=== PATIENT | male | born 1985 | race Caucasian/White ===

== ENCOUNTER 2016-08-02 08:44 | Inpatient (IN) | payer MEDICAID, OTHER ==
[~2016-08-02 08:44] MED LIST: Gabapentin 300 MG Cap PO ONE; cefOXitin 2 GM Vial ONE
[2016-08-02] MEDS ORDERED: Ketamine 500 MG/5 ML MDV IV SCH (09:00)
[2016-08-02] MEDS ORDERED: fentaNYL 250 MCG/5 ML SDV ONE ×2 (09:03→11:34)
[2016-08-02] MEDS ORDERED: Succinylcholine/Normal Saline 200 MG/10 ML Syringe ONE (09:05)
[2016-08-02] MEDS ORDERED: Propofol 200 MG/20 ML SDV ONE (09:05)
[2016-08-02] MEDS ORDERED: Lactated Ringers 1,000 ML ONE (09:05)
[2016-08-02] MEDS ORDERED: Dexamethasone 4 MG/ML SDV ONE (09:05)
[2016-08-02] MEDS ORDERED: Rocuronium 50 MG/5 ML Vial ONE (09:05)
[2016-08-02] MEDS ORDERED: Neostigmine Methylsulfate 1 MG/ML 5 ML Syringe ONE (09:05)
[2016-08-02] MEDS ORDERED: Ondansetron 4 MG/2 ML SDV ONE (09:05)
[2016-08-02] MEDS ORDERED: Scopolamine 1.5 MG Transdermal Patch TRDERM SCH (09:15)
[2016-08-02] MEDS ORDERED: Scopolamine 1.5 MG Transdermal Patch TRDERM PRN (09:30)
[2016-08-02] MEDS ORDERED: Acetaminophen 500 MG Tab PO ONE (09:30)
[2016-08-02] MEDS ORDERED: Celecoxib 200 MG Cap PO ONE (09:30)
[2016-08-02] MEDS ORDERED: Dextrose 5%-Lactated Ringers 1,000 ML IV SCH (10:00)
[2016-08-02] MEDS ORDERED: cefOXitin 2 GM in Sodium Chloride 0.9% 50 ML IV ONE (10:15)
[2016-08-02] MEDS ORDERED: Ropivacaine 60 ML, Dexamethasone 8 MG, EPINEPHrine 0.4 MG, Sodium Chloride 0.9% 17.6 ML NERVRT SCH ×4 (10:30)
[2016-08-02] MEDS ORDERED: Lidocaine 2% 100 MG/5 ML Syringe IVPUSH ONE (10:30)
[2016-08-02] MEDS ORDERED: hydrOXYzine HCl 50 MG/ML SDV IM ONE (12:47)
[2016-08-02] MEDS ORDERED: HYDROmorphone 1 MG/ML Syringe IM ONE (13:28)
[2016-08-02] MEDS: Lidocaine 0.4%/D5W 2 GM/500 ML BAG IV SCH ×2 (14:30→14:56)
[2016-08-02] MEDS ORDERED: Metoclopramide 10 MG/2 ML SDV IV PRN (15:08)
[2016-08-02] MEDS ORDERED: diphenhydrAMINE 50 MG/ML SDV IV PRN (15:09)
[2016-08-02] MEDS: Acetaminophen Soln 650 MG/20.3 ML UD Cup PO SCH ×2 (15:48→21:13)
[2016-08-02] MEDS ORDERED: Pantoprazole 40 MG Vial IVPUSH SCH (16:00)
[2016-08-02] MEDS ORDERED: hydrOXYzine HCl 50 MG/ML SDV IM PRN (16:00)
[2016-08-02] MEDS ORDERED: SCOPOLAMINE PATCH ASK TOP SCH (16:00)
[2016-08-02] MEDS ORDERED: Insulin Aspart 100 Units/ML 3 ML Pen SUBCUT PRN (16:00)
[2016-08-02] MEDS ORDERED: Ondansetron 4 MG/2 ML SDV IVPUSH PRN (16:00)
[2016-08-02] MEDS ORDERED: Labetalol 20 MG/4 ML Syringe IVPUSH PRN (16:00)
[2016-08-02] MEDS ORDERED: SCOPOLAMINE PATCH CHECK TOP SCH (16:00)
[2016-08-02] MEDS: MVI, Adult with Vitamin K 10 ML, Thiamine 200 MG, Chromium/Copper/Mang/Selen/Zn 1 ML in... IV SCH ×4 (16:30)
[2016-08-02] MEDS: cefOXitin 2 GM in Sodium Chloride 0.9% 50 ML IV SCH ×2 (17:27→22:06)
[2016-08-02] MEDS: Heparin Sodium 5,000 Units/ML Vial SUBCUT SCH (17:27)
[2016-08-02] MEDS: Gabapentin 250 MG/5 ML Solution ML 470 ML Bottle PO SCH (21:13)
[2016-08-02] MEDS: Dextrose 5%-Lactated Ringers 1,000 ML IV SCH (23:15)
[2016-08-03] MEDS: Heparin Sodium 5,000 Units/ML Vial SUBCUT SCH ×3 (02:55→18:10)
[2016-08-03] MEDS: Acetaminophen Soln 650 MG/20.3 ML UD Cup PO SCH ×4 (03:00→21:56)
[2016-08-03] MEDS: Lidocaine 0.4%/D5W 2 GM/500 ML BAG IV SCH (04:05)
[2016-08-03] MEDS ORDERED: Iohexol 647 MG/ML 50 ML SDV PO STA (04:07)
[2016-08-03] MEDS: cefOXitin 2 GM in Sodium Chloride 0.9% 50 ML IV SCH (04:10)
[2016-08-03] MEDS: Dextrose 5%-Lactated Ringers 1,000 ML IV SCH (05:56)
[2016-08-03] MEDS ORDERED: Dextrose 5%-Lactated Ringers 1,000 ML IV SCH ×2 (07:23→07:45)
[2016-08-03] MEDS: Celecoxib 200 MG Cap PO SCH (08:22)
[2016-08-03] MEDS: Gabapentin 250 MG/5 ML Solution ML 470 ML Bottle PO SCH ×3 (08:24→20:42)
--- NOTE | 2016-08-03 08:31 | CR ---
Limited upper GI. Findings: Contrast within the lower esophagus. Surgical drains. No dilated loops of small bowel.
--- NOTE | 2016-08-03 09:45 | PN ---
DATE OF SERVICE: 08/03/2016 SUBJECTIVE: Doron is postop day #1. His pain has been controlled. He had oral intake at 12:10. He has been up ambulating and vital signs have been stable. REVIEW OF SYSTEMS: Remainder of review of systems negative for any pertinent positives and negatives. OBJECTIVE: GENERAL: Doron Bueno is a 31-year-old male. He is alert and orientated. SKIN: Warm and dry. Color flushed. VITAL SIGNS: TPR 97.3, 62, 16, blood pressure 132/79. HEENT: Negative. NECK: Supple. HEART: Regular rate and rhythm. LUNGS: Clear. ABDOMEN: Dressings dry and intact. Abdominal binder is on. JOYCE drain put out a light pink serous drainage of 62 mL in the past 24 hours. EXTREMITIES: SCDs are on. There is no peripheral edema. ASSESSMENT: Laparoscopic Freddy-en-Y gastric bypass surgery, liver biopsy for morbid obesity and hepatomegaly. PLAN: 1. Step-2 gastric bypass diet without cereal. 2. Decrease IV to 100 mL per hour. 3. Shower b.i.d. with soap. 4. Good pulmonary toilet encouraged. 5. We will evaluate p.r.n. or in a.m. 6. Consult to Case Management. 7. Plan discharge on Monday and to confirm that [employer] gr meals on wheels driver can come and pick him up. Kinjal Naylor PA-C /[id number]
[2016-08-03] MEDS ORDERED: Pantoprazole 40 MG Tab.CR PO SCH (16:30)
[2016-08-03] MEDS: MVI, Adult with Vitamin K 10 ML, Thiamine 200 MG, Chromium/Copper/Mang/Selen/Zn 1 ML in... IV SCH ×4 (16:50)
[2016-08-04] MEDS: Acetaminophen Soln 650 MG/20.3 ML UD Cup PO SCH ×2 (03:05→09:18)
[2016-08-04] MEDS: Heparin Sodium 5,000 Units/ML Vial SUBCUT SCH ×2 (03:05→09:17)
[2016-08-04] MEDS: Celecoxib 200 MG Cap PO SCH (07:21)
[2016-08-04] MEDS ORDERED: Cyanocobalamin (Vitamin B12) 1,000 MCG/ML SDV IM ONE (09:00)
[2016-08-04] MEDS ORDERED: Magnesium Hydroxide 400 MG/5 ML Susp 30 ML Cup PO ONE (09:00)
[2016-08-04] MEDS: Gabapentin 250 MG/5 ML Solution ML 470 ML Bottle PO SCH (09:17)
--- NOTE | 2016-08-04 11:25 | PN ---
DATE OF SERVICE: 08/04/2016 The patient has been afebrile with stable vital signs. He has constipation and some abdominal bloating. We will give him some bowel stimulation today; however, his blood sugars have all been adequate. We will discontinue the Accu-Cheks and we are tentatively planning for discharge home tomorrow. Sam Kearney MD /[id number]
[2016-08-04 13:40] VITALS: BP 153/75
[2016-08-04] MEDS ORDERED: Magnesium Hydroxide 400 MG/5 ML Susp 30 ML Cup PO PRN (18:00)
--- NOTE | 2016-08-05 10:17 | DISCH ---
FINAL DIAGNOSES: 1. Morbid obesity. 2. Prediabetes. 3. History of myopia and an open angle pre glaucoma. 4. Hyperlipidemia. 5. History obstructive sleep apnea. 6. Hepatomegaly. Grossly fatty infiltrated liver. Procedure was done on 08/02/2016; laparoscopic Freddy-en-Y gastric bypass with long limb gastroenterostomy and liver biopsy. HOSPITAL COURSE: This is a 31-year-old male with longstanding morbid obesity and increasingly significant comorbidities. After preoperative evaluation and discussion, he wished to proceed with a gastric bypass procedure. This was done laparoscopically on the date of admission and he also had a liver biopsy. Postoperatively, the patient had no significant problems. He is tolerating a step-2, i.e., full liquid type diet without difficulty. The blood sugars were checked perioperatively and these are all less than 150 and he is fully ambulatory. The plan will be to discharge home. He will be following up Kinjal Naylor at the [facility] in [place] on August 16, 2016. DISCHARGE MEDICATIONS: Will include atorvastatin 10 mg daily which were instructed for two weeks, polyethylene glycol p.r.n. We may instruct to check the Accu-Cheks twice a day for the next week, but if they are consistently less than 150 over the next three days, we can stop after that. Otherwise, he will be on Tylenol 650 mg q.i.d. scheduled x5 days and q.i.d. p.r.n. and Celebrex 200 mg p.o. daily x14 days. His vitamins and other supplements will be started after the first postoperative visit.
--- NOTE | 2016-08-12 15:08 | OR ---
DATE OF PROCEDURE: 08/02/2016 PREOPERATIVE DIAGNOSIS: Morbid obesity. POSTOPERATIVE DIAGNOSES: 1. Morbid obesity. 2. Marked hepatomegaly. PROCEDURES: 1. Laparoscopic Freddy-en-Y gastric bypass with long limb gastroenterostomy (56908). 2. Manuel-Cut needle liver biopsy (12300). ANESTHESIA: General. RECEPTION INTERVIEWER: Kinjal Naylor PA-C. INDICATION FOR PROCEDURE: This is a 31-year-old male with longstanding morbid obesity evaluated with increasing comorbidities. After preoperative evaluation and discussion, he wished to proceed with a gastric bypass procedure. Potential risks of the procedure including bleeding, infection, leaks from various GI tract closures, problems with bowel obstruction over time as well as possibility of cardiopulmonary, septic, or hemorrhagic complications and were discussed, and the patient wishes to proceed. DETAILS OF PROCEDURE: The patient was taken to the room and placed in the supine position. After general endotracheal anesthesia was induced, converted to a lithotomy position and a bilateral transversus abdominis plane blocks in subcostal location were placed under ultrasound guidance on each side with each side receiving 40 mL of saline, ropivacaine, dexamethasone, and epinephrine with injections. Following this the abdomen was prepped and draped. The 15 cm inferior, 5 cm left of xiphoid process, transverse incision was made and the peritoneal cavity was entered under direct vision with an Optiview trocar and inflated to 15 mmHg pressure of CO2. Laparoscope was reinserted. No underlying trocar insertion site injuries were seen. Following this, 5 additional trocars were placed across the upper mid abdomen and general exploration was undertaken. The patient was noted to have marked hepatomegaly with liver volume being roughly 2 to 3 times normal and the liver grossly fatty infiltrated. Manuel-Cut needle biopsies were obtained from the left lobe of the liver. Minimal bleeding from the biopsy sites was controlled with electrocautery. The omentum was then divided in the midline up to the level of the transverse colon. This allowed identification of small bowel ligament of Treitz. Small bowel was then traced out 200 cm distal. To that point, it was divided transversely with a RABIA stapler. It was then traced out initial 200 cm where the agri-bo-iccd enteroenterostomy was accomplished with internal firing of the Endo-RABIA 60 mm stapler. The common opening was then closed transversely with the same stapler and angles anastomosed, and mesenteric defect approximated with some 0-Ethibond stitch along with fibrin sealant, divided Freddy limb was then from the mesentery for a few centimeters, which allowed an antecolic position of the Freddy limb up to the level of esophagogastric junction without tension. The liver was then retracted anteriorly. The patient was noted to have no significant hiatal hernia. The gastrointestinal catheter was inflated with 15 mL of air and pulled up snugly against the EG junction. Gastric wall over the apex balloon was then marked with electrocautery, and balloon catheter deflated and withdrawn. The lesser omental tissue adjacent to gastric cardia was then incised allowing dissection behind the stomach at that level. Pouch formation was initiated with a transverse firing of the RABIA stapler at the level of the cauterized marked at the gastric cardia. The pouch was then completed with 2 additional firings of the RABIA stapler up to and through the angle of His. Upon completion of the pouch, both staple lines were noted to be intact. The anvil of a 21 mm EEA stapler was attached to a Strafford sump type tube. The latter was brought down through the mouth and taken out through a small opening. The gastric pouch, allowing the anvil likewise to be placed into the gastric pouch. The divided Freddy limb was then opened and the body of the EEA stapler passed several centimeters in the lumen and small bowel brought up through the anvil and united with it, thus creating the gastrojejunostomy. Upon removal of the stapler, double donuts of mucosa were noted within. Small bowel was closed off with a vascular staple line. Gastrojejunostomy was then reinforced with some 3-0 Vicryl seromuscular stitch along with fibrin sealant. Leak test was accomplished with injection of 120 mL of air in the gastric pouch was submerged with cefoxitin-containing saline solution, a single Monty-Reeder drain was then placed through the left subcostal trocar site and placed up against the gastrojejunostomy and from there up into the area overlying the splenic fossa. The trocars were then removed and the cavity deflated. Incisions were closed with some 4-0 Vicryl skin stitch. Drains were affixed with some 4-0 Vicryl stitch as well. The patient was taken to the recovery room in satisfactory condition. Physician financial administrative assistant, Kinjal Naylor, played an essential role in assisting in this case, helping to position the patient, retract structures as needed, as well as suturing and cutting sutures as were indicated. Her presence improved the patient's safety and decreased the operative time. Sam Kearney MD /[id number]
== END 2016-08-04 13:18 | disposition home or self-care (01) | DRG 621 ==
LOC: JP.MS 08:44 → JP.SDS 08:44 → EDSTATUS 10:00 → JP.2SS 14:00
PROVIDERS: ADMIT Surgery; ATTEND Surgery
PROC: 0FB24ZX Excision of Left Lobe Liver, Percutaneous Endoscopic Approach, Diagnostic (ICD-10-PCS; principal; 2016-08-02)
PROC: 0D164ZA Bypass Stomach to Jejunum, Percutaneous Endoscopic Approach (ICD-10-PCS; principal; 2016-08-02)
DX: E66.01 Morbid (severe) obesity due to excess calories (principal); Z68.43 Body mass index [BMI] 50.0-59.9, adult; R16.0 Hepatomegaly, not elsewhere classified; K59.00 Constipation, unspecified; E78.5 Hyperlipidemia, unspecified; G47.00 Insomnia, unspecified; G47.33 Obstructive sleep apnea (adult) (pediatric); G43.909 Migraine, unspecified, not intractable, without status migrainosus
CPT/HCPCS: 36415; 74240; 74240-26; 80053; 82962; 83036; 86850; 86900; 86901; 88307; 88313; A9270-GY; C9113; J0171; J0694; J1100; J1170; J1644; J2001; J2405; J2704; J2795; J3010; J3410; J3411; J3420; J7030; J7040; J7042; J7050; J7120; Q9967

== ENCOUNTER 2016-08-29 14:20 | Inpatient (IN) | payer MEDICAID ==
[2016-08-29] MEDS ORDERED: Magnesium Hydroxide 400 MG/5 ML Susp 30 ML Cup PO PRN (14:45)
[2016-08-29] MEDS ORDERED: Docusate Sodium 100 MG Cap PO PRN (14:45)
[2016-08-29] MEDS ORDERED: Acetaminophen 650 MG Supp RECTAL PRN (14:46)
[2016-08-29] MEDS ORDERED: Acetaminophen 325 MG Tab PO PRN (14:46)
[2016-08-29] MEDS ORDERED: Ondansetron 4 MG Tab.DIS PO PRN (14:52)
[2016-08-29] MEDS ORDERED: Ondansetron 4 MG Tab.DIS PO SCH (16:00)
[2016-08-29] MEDS ORDERED: MVI, Adult with Vitamin K 10 ML, Magnesium Sulfate 2 GM, Folic Acid 1 MG, Thiamine 100 ... IV ONE ×5 (16:00)
[2016-08-29] MEDS: Acetaminophen 325 MG Tab PO PRN (16:10)
[2016-08-29] MEDS: Pantoprazole 40 MG Vial IV SCH (16:16)
--- NOTE | 2016-08-29 16:53 | HP ---
HISTORY OF PRESENT ILLNESS: Doron presented to the clinic today for his one-month followup following a Freddy-en-Y gastric bypass surgery. He was treated for gout at his last clinic visit on 08/15/2016. His gout was in his right foot and has gone now to his left foot. He has been unable to walk at all. He has been in bed most of the time. He states that if he is sitting still his pain is a 2 to 3/10. If he gets up and walks, it is an 8/10. On 08/15/2016, his uric acid was 16.3, sedimentation rate was 89, and white count was 12.6. At that time, he was started on allopurinol 200 mg twice a day, Indocin 50 mg 3 times a day for 5 days, and omeprazole 20 mg p.o. twice a day for 30 days. He said for about five days when he was on the Indocin it did help but then he said it actually got worse when it went into his other foot. He has been unable to walk or put any pressure on his feet at all. He has been getting around with on a wheeled computer chair. PAST MEDICAL HISTORY: Includes vitamin D deficiency, arthritis, back pain, fatigue, dyslipidemia, cluster headaches, hypertension, and morbid obesity. PAST SURGICAL HISTORY: Includes Freddy-en-Y gastric bypass surgery 08/02/2016, consult weight 363, height 69.9 inches, and his last weight in the clinic was 08/15/2016 at 3:28 a.m. He is unable to stand to get a weight today. ALLERGIES: HE HAS NO KNOWN MEDICAL ALLERGIES. SOCIAL HISTORY: Lives with his dad who is disabled and does not drive. Unemployment nonapplicable. Children nonapplicable. Single. He does not smoke, drink alcohol, carbonation or caffeine. Protein intake was one protein shake per day. He has tried canned chicken but he threw it up. Fluid is 32 ounces of water a day. Exercise none. FAMILY HISTORY: Obesity in mother, father, paternal grandmother, and maternal grandfather. Diabetes in mother, paternal and maternal grandmother and father. Cardiovascular disease in both parents, paternal and maternal grandparents. Cancer in maternal grandmother and maternal grandfather. Hypertension in both parents and both paternal and maternal grandparents. CURRENT MEDICATIONS: Include Lipitor 10 mg p.o. daily, multivitamin chewable 1-2 times a day, allopurinol 200 mg twice a day, MiraLAX 17 g once a day, and Tylenol 500 mg two every 6 hours p.r.n. pain. REVIEW OF SYSTEMS: GENERAL: He has had weight loss, the amount unknown. No fever, chills, night sweats, or fatigue. HEENT: Negative for headache, ear pain, loss of hearing, blurred or double vision. RESPIRATORY: Shortness of breath with exertion, no cough. CARDIOVASCULAR: No chest pain, fast or irregular heart beat. GI: No dysphagia or abdominal pain. Occasional nausea with vomiting x1. He has had one episode of nausea with vomiting. Denies constipation or diarrhea. : Negative. ENDOCRINE: Negative. MUSCULOSKELETAL: Positive for bilateral feet pain and has chronic back pain. NEUROLOGIC: No dizziness, loss of coordination. PSYCHIATRIC: Negative for anxiety, depression. No significant anxiety. Denies insomnia but does report to starting onto get depressed with some inability to walk. PHYSICAL EXAMINATION: GENERAL: Doron Bueno is a 31-year-old male. He is alert and orientated. VITAL SIGNS: 151/105, 200/105, 164/80, and 175/124 blood pressure, temperature 99, pulse 106, respirations 16, and O2 sats 98%. HEENT: Negative. NECK: Supple. HEART: Regular rate and rhythm LUNGS: Clear. ABDOMEN: Soft, nontender. Incisions are well healed. EXTREMITIES: Revealed trace peripheral edema. Feet are slightly edematous bilaterally. There is no red or warm joint noted. He does have tenderness in the instep of each foot that extends into the toes. SKIN: Without rash. PSYCHIATRIC: Mood and affect are appropriate. ASSESSMENT: 1. Bilateral foot pain. 2. Gout. 3. Status post Freddy-en-Y gastric bypass surgery. 4. Unspecified surgical malabsorption. 5. B12 deficiency. 6. Vitamin D deficiency. 7. Arthritis. 8. Back pain. 9. Chronic fatigue. 10.Cluster headaches. 11.Impaired glucose function. 12.Dyslipidemia. PLAN: Admit to the hospital for inpatient for bilateral foot pain and gout. Diet: Step 2 gastric bypass diet with cream of wheat, cottage cheese, string cheese, can Tuna or chicken. Activity as tolerated. Vital signs q.4 hours. IV hydration. D5 LR at 150 mL/h, check CBC, CMP, CRP, sedimentation rate, uric acid, shower daily, physical therapy to evaluate and treat for deconditioning and bilateral gout, daily weight checks. Podiatry consult and x- ray of both feet were done at clinic. Protonix 40 mg IV b.i.d., Lipitor 10 mg once daily. Hold MiraLAX 17 mg once daily. 1 L of with one amp MVI 2 g, magnesium 1 mg, folic acid 100 mg, thiamine infused over 1 hour, allopurinol 150 mg b.i.d., Tylenol 650 mg q.6 hours p.r.n. pain, colchicine 0.6 mg one tab p.o. b.i.d., Zofran ODT 4 mg q.4 hours p.r.n. nausea, and Solu-Medrol 125 mg IV b.i.d. Wait until tomorrow to give pending pain. Admit to inpatient status. Estimate time of stay would be 3 and 4 days. Kinjal Naylor PA-C /[id number]
[2016-08-29] MEDS: Dextrose 5%-Lactated Ringers 1,000 ML IV SCH (18:19)
[2016-08-29] MEDS: Colchicine 0.6 MG Tab PO SCH (20:00)
[2016-08-29] MEDS: Allopurinol 300 MG Tab PO SCH (20:00)
[2016-08-30] MEDS: Dextrose 5%-Lactated Ringers 1,000 ML IV SCH ×3 (01:06→21:53)
[2016-08-30] MEDS: Pantoprazole 40 MG Vial IV SCH (04:20)
[2016-08-30] MEDS: HYDROmorphone 2 MG Tab PO PRN (07:38)
[2016-08-30] MEDS ORDERED: MVI, Adult with Vitamin K 10 ML, Thiamine 200 MG, Chromium/Copper/Mang/Selen/Zn 1 ML in... IV ONE ×4 (08:00)
[2016-08-30] MEDS ORDERED: Cyanocobalamin (Vitamin B12) 1,000 MCG/ML SDV IM ONE (09:00)
[2016-08-30] MEDS: Colchicine 0.6 MG Tab PO SCH ×2 (09:38→21:37)
[2016-08-30] MEDS: Magnesium Citrate Solution 296 ML Bottle PO ONE ×2 (09:38→09:40)
[2016-08-30] MEDS: Allopurinol 300 MG Tab PO SCH ×2 (09:38→21:37)
[2016-08-30] MEDS: Polyethylene Glycol 3350 Powder 17 GM Packet PO SCH ×2 (09:39)
[2016-08-30] MEDS: methylPREDNISolone Sodium Succinate 125 MG/2 ML SDV IVPUSH SCH ×2 (10:58→21:34)
--- NOTE | 2016-08-30 11:37 | PN ---
DATE OF SERVICE: 08/30/2016 The patient has been afebrile with stable vital signs, but still complaining of some pain in his feet. I will add some dilaudid to that regimen as well to get him up and moving, otherwise, continue colchicine and allopurinol for the gout. He will be on a step-2 diet, well keep that going for today and give him some magnesium citrate as he has not moved his bowels now for several days, and then have physical therapy evaluation the patient as well. Sam Kearney MD /[id number]
[2016-08-30] MEDS: Pantoprazole 40 MG Tab.CR PO SCH (15:35)
[2016-08-31] MEDS: HYDROmorphone 2 MG Tab PO PRN ×5 (02:34→22:09)
[2016-08-31] MEDS: Dextrose 5%-Lactated Ringers 1,000 ML IV SCH (05:11)
[2016-08-31] MEDS: Pantoprazole 40 MG Tab.CR PO SCH ×2 (07:37→17:29)
[2016-08-31] MEDS: Polyethylene Glycol 3350 Powder 17 GM Packet PO SCH (09:04)
[2016-08-31] MEDS: Allopurinol 300 MG Tab PO SCH ×2 (09:04→22:06)
[2016-08-31] MEDS: Colchicine 0.6 MG Tab PO SCH ×2 (09:05→22:07)
[2016-08-31] MEDS: Acetaminophen 325 MG Tab PO PRN ×2 (09:10→13:32)
--- NOTE | 2016-08-31 09:12 | PN ---
DATE OF SERVICE: 08/31/2016 SUBJECTIVE: Doron has not been up ambulating yet. He reports his pain is better. He has been on colchicine as well as Solu-Medrol. Oral intake has been 2890 and he has consumed 100% of breakfast, lunch, and dinner. He is on a step 3 diet, but refuses to eat any cottage cheese, will maybe add some more step 3 diet foods today per dietitian. Denies any dysphagia. REVIEW OF SYSTEMS: HEENT: Negative. NECK: Negative. CHEST: No chest pain, shortness of breath, fast or irregular heart beat. LUNGS: No cough. ABDOMEN: Completely negative. He did have a bowel movement on 08/31/2016. : Negative. EXTREMITIES: Continues to report pain on bilateral feet. He is taking Dilaudid and he did have a Physical therapy consult yesterday, but refused to walk. SKIN: Without rash. PSYCHIATRIC: Cries easily. Flat affect. Lack of motivation. NEURO: No headaches, dizziness, or loss of coordination. Remainder of review of systems negative for any pertinent positives and negatives. OBJECTIVE: GENERAL: Doron Bueno is a 31-year-old male. VITAL SIGNS: TPR is 97, 60, 16, blood pressure 139/76. Poor hygiene, refuses shower. HEENT: Negative. NECK: Supple. HEART: Regular rate and rhythm. LUNGS: Clear. ABDOMEN: Negative. Soft and nontender. EXTREMITIES: Negative feet. No pain with palpation. Slight swelling in the instep. No change from admission. SKIN: Without rash. ASSESSMENT: 1. Acute onset of gout, bilateral feet. 2. Status post Freddy-en-Y gastric bypass surgery. 3. Unspecified surgical malabsorption. 4. B12 deficiency. 5. Obesity. 6. Vitamin D deficiency. 7. Arthritis. 8. Back pain. 9. Chronic fatigue. 10.Cluster headaches. 11.Impaired glucose function. 12.Dyslipidemia. PLAN: 1. Solu-Medrol 60 mg IV q.12 hours. 2. Shower . 3. Consult with Bariatric Lifestyle Counselor, Sanjay Box. 4. Today encouraged to walk, may walk with a walker and to try to at least walk to the bathroom. 5. We will continue to encourage discharge planning involved in regard to discharge placement. Kinjal Naylor PA-C /[id number]
[2016-08-31] MEDS: methylPREDNISolone Sodium Succinate 125 MG/2 ML SDV IVPUSH SCH ×2 (10:15→22:06)
[2016-09-01] MEDS: Dextrose 5%-Lactated Ringers 1,000 ML IV SCH ×2 (02:56→11:48)
[2016-09-01] MEDS: HYDROmorphone 2 MG Tab PO PRN ×5 (05:08→23:10)
[2016-09-01] MEDS: Pantoprazole 40 MG Tab.CR PO SCH ×2 (07:28→16:44)
[2016-09-01] MEDS: Allopurinol 300 MG Tab PO SCH ×2 (08:36→21:08)
[2016-09-01] MEDS: Colchicine 0.6 MG Tab PO SCH ×2 (08:37→21:08)
[2016-09-01] MEDS: Polyethylene Glycol 3350 Powder 17 GM Packet PO SCH (08:37)
--- NOTE | 2016-09-01 10:12 | PN ---
DATE OF SERVICE: 09/01/2016 SUBJECTIVE: Doron has been walking with assistance of a walker with much encouragement. He is reporting his pain is better controlled. He has been afebrile. Oral intake is marginal at 778. He is eating 100% of breakfast, lunch, and dinner and per Doron's report, he has only received one protein drinks between meals since his admission. REVIEW OF SYSTEMS: HEENT: Negative. GENERAL: No fever, chills, night sweats, or fatigue. CARDIOVASCULAR: No chest pain, fast or irregular heart beat. Less swelling in feet and lower extremities. LUNGS: No shortness of breath or cough. GASTROINTESTINAL: No nausea, vomiting, diarrhea, or constipation. MUSCULOSKELETAL: Bilateral feet pain, he reports an 8/10. SKIN: Negative for moles. NEUROLOGIC: Negative. PSYCHIATRIC: Seems in a better mood today and less depressed and less tearful. ENDOCRINE: Less fatigued. HEMOLYTIC: Denies any abnormal bleeding, bruising, or lymph node enlargement. Remainder of review of systems negative for any pertinent positives and negatives. OBJECTIVE: GENERAL: Doron Bueno is a 31-year-old male. VITAL SIGNS: TPR is 96.8, 76, 16, and blood pressure is 154/90. HEENT: Negative. NECK: Supple. HEART: Regular rate and rhythm. LUNGS: Clear. ABDOMEN: Soft, nontender. EXTREMITIES: Revealed a less peripheral edema. Full range of motion. NEUROLOGIC: Intact. PSYCHIATRIC: As above. ASSESSMENT: 1. Acute onset of gout, bilateral feet. 2. Status post Freddy-en-Y gastric bypass surgery. 3. Unspecified surgical malabsorption. 4. B12 deficiency. PLAN: 1. Decrease IV to 60 mL/h. 2. Referral to discharge planning in regard to home care, Micheal's worker BUILDING ANALYST/SUPERVISOR to check what is available in his county which would benefit him the most. 3. Order written for protein shakes between meals and at bedtime. 4. Continue to increase activity walking. He will continue with his physical therapy. 5. We will evaluate p.r.n. or in a.m. Kinjal Naylor PA-C /[id number]
[2016-09-01] MEDS: methylPREDNISolone Sodium Succinate 125 MG/2 ML SDV IVPUSH SCH ×2 (10:36→22:24)
[2016-09-01] MEDS: Acetaminophen 325 MG Tab PO PRN (23:10)
[2016-09-02] MEDS: HYDROmorphone 2 MG Tab PO PRN (04:40)
[2016-09-02] MEDS: Dextrose 5%-Lactated Ringers 1,000 ML IV SCH (04:41)
[2016-09-02 07:19] VITALS: BP 130/81
[2016-09-02] MEDS: Pantoprazole 40 MG Tab.CR PO SCH (07:49)
[2016-09-02] MEDS ORDERED: methylPREDNISolone Sodium Succinate 125 MG/2 ML SDV IVPUSH ONE (09:00)
[2016-09-02] MEDS: Colchicine 0.6 MG Tab PO SCH (09:33)
[2016-09-02] MEDS: Allopurinol 300 MG Tab PO SCH (09:33)
[2016-09-02] MEDS: Polyethylene Glycol 3350 Powder 17 GM Packet PO SCH (09:38)
--- NOTE | 2016-09-03 03:38 | DISCH ---
ADMISSION DIAGNOSES: Acute gout in each foot, SP Freddy-en-Y gastric bypass surgery, morbid obesity, unspecified surgical malabsorption, and B12 deficiency, vitamin D deficiency, arthritis, chronic back pain, fatigue, dyslipidemia, cluster headaches, hypertension. DISCHARGE DIAGNOSES: Gout bilateral feet, SP Freddy-en-Y gastric bypass surgery, unspecified surgical malabsorption, B12 deficiency, and vitamin D deficiency. HISTORY: Doron was admitted to the hospital as a direct admit from the clinic for the symptom of not walking for 2 weeks. He had a very difficult time coming in here. His uric acid was 10.9 and C-reactive protein was 5.16. He was treated two weeks prior to coming back into the clinic. He was started on allopurinol and Indocin. He felt like the Indocin helped, but when he stopped taking it, things got more severe. He has been using a wheeled desk chair or scooting on his bottom to get around. He was admitted to the hospital. He was treated with Solu-Medrol, colchicine, and started on allopurinol. With IV fluids, physical therapy, and immense encouragement, Doron was able to walk with a walker, shower, and his pain was decreased. He was ready to be discharged to home on 09/02/2016 with adequate dietary instruction and he will be receiving physical therapy at home. His oral intake was also adequate. OBJECTIVE: GENERAL: Doron Bueno is a 31-year-old male. VITAL SIGNS: Height 5 feet 6 inches. Weight is 323 pounds. TPR at 97.6, 62, 18. Blood pressure 130/81. HEENT: Negative. NECK: Supple. HEART: Regular rate and rhythm. LUNGS: Clear. ABDOMEN: Soft, nontender. EXTREMITIES: Without peripheral edema. His feet are less swollen and he is able to walk with a walker in the perez. DISPOSITION: Discharged to home. CONDITION: Stable and improving. FOLLOWUP APPOINTMENT: On 10/05/2016 at 11:00 a.m. HOME MEDICATIONS: Zyloprim, allopurinol 150 mg oral twice daily, #100, 11 refills, Celebrex 200 mg p.o. daily, #30, take with food, omeprazole 20 mg oral twice daily, #60, 5 refills, Medrol Dosepak 4 mg take as directed. He is to resume his home medications, vitamin D3 1000 mg oral daily, vitamin B12 1000 mcg sublingual daily, pediatric chewable vitamin 1 chewable twice daily, MiraLax 17 g daily, vitamin B1 100 mg oral daily, and Lipitor 10 mg at bedtime. DIET: Drink 8-10 glasses of water a day, step three gastric bypass diet. ACTIVITY: Is walk 8 times daily short distances. Shower bathing, july shower. SPECIAL INSTRUCTION: To have physical therapy in [place], September 06 at 4 p.m. and it is located at [facility], [address] [place] [address].
== END 2016-09-02 10:22 | disposition home or self-care (01) | DRG 554 ==
LOC: JP.2SS 14:20
PROVIDERS: ADMIT Physician Assistant Medical; ATTEND Physician Assistant Medical
DX: M10.9 Gout, unspecified (principal); K91.2 Postsurgical malabsorption, not elsewhere classified; E53.8 Deficiency of other specified B group vitamins; I10 Essential (primary) hypertension; E78.5 Hyperlipidemia, unspecified; E55.9 Vitamin D deficiency, unspecified; M19.90 Unspecified osteoarthritis, unspecified site; M54.9 Dorsalgia, unspecified; Z98.84 Bariatric surgery status; Z98.0 Intestinal bypass and anastomosis status; R53.82 Chronic fatigue, unspecified; R73.02 Impaired glucose tolerance (oral); G44.009 Cluster headache syndrome, unspecified, not intractable
CPT/HCPCS: 36415; 80053; 83735; 84100; 84550; 85027; 85651; 86140; 97110-GP; 97116-GP; 97162-GP; A9270-GY; C9113; J2930; J3411; J3420; J3475; J3490; J7042; J7120